=== PATIENT | male | born 1955 | race Hispanic/Latino ===

== ENCOUNTER 2021-10-21 08:37 | Emergency (ER) | payer OTHER ==
[~2021-10-21] VITALS: Ht 175.3 cm; Wt 84.4 kg
[2021-10-21 08:50] VITALS: BP 132/79
[2021-10-21] MEDS ORDERED: ALTEPLASE 2MG VIAL 2 MG/VIAL VIAL IVCATH SCH (09:00)
== END 2021-10-21 10:50 | disposition home or self-care (01) ==
LOC: EDH 08:37
DX: T82.594A Other mechanical complication of infusion catheter, initial encounter (principal); I10 Essential (primary) hypertension; E10.9 Type 1 diabetes mellitus without complications
CPT/HCPCS: 36593; 99285; J2997

== ENCOUNTER 2021-11-18 09:37 | Emergency (ER) | payer OTHER ==
[~2021-11-18] VITALS: Ht 175.3 cm; Wt 79.8 kg
[2021-11-18 09:38] VITALS: BP 129/59
[2021-11-18] MEDS ORDERED: ALTEPLASE 2MG VIAL 2 MG/VIAL VIAL IVCATH SCH (11:00)
== END 2021-11-18 12:15 | disposition home or self-care (01) ==
LOC: EDH 09:37
DX: T82.594A Other mechanical complication of infusion catheter, initial encounter (principal); E11.9 Type 2 diabetes mellitus without complications; E78.00 Pure hypercholesterolemia, unspecified; I10 Essential (primary) hypertension; Z98.890 Other specified postprocedural states
CPT/HCPCS: 36593; 82948; 99285; J2997

== ENCOUNTER 2022-02-05 21:29 | Emergency (ER) | payer OTHER ==
[~2022-02-05] VITALS: Ht 180.3 cm; Wt 90.7 kg
[2022-02-05 21:57] LABS: BASOPHILS % (AUTO) 0.7 % (0.0-5.0); EOSINOPHILS % (AUTO) 3.2 % (0.0-8.0); HEMATOCRIT 34.3 % (42-54); LYMPHOCYTES % (AUTO) 25.3 % (21.0-51.0); MEAN CORPUSCULAR HEMOGLOBIN 29.9 pg (27.0-33.0); MEAN CORPUSCULAR HGB CONC 35.3 g/dL (32.0-36.0); MEAN CORPUSCULAR VOLUME 84.7 fL (79-99); MONOCYTES % (AUTO) 7.9 % (3.0-13.0); NEUTROPHILS % (AUTO) 62.6 % (40.0-77.0); PLATELET COUNT (AUTO) 280 K/uL (130-400); RED BLOOD CELL COUNT(AUTO) 4.05 MIL/uL (4.50-6.20); RED CELL DISTRIBUTION WIDTH 13.2 % (11.0-15.5)
[2022-02-05] MEDS ORDERED: DICYCLOMINE HCL 10 MG/5 ML ML PO ONE (22:00)
[2022-02-05] MEDS ORDERED: LIDOCAINE HCL 2% VISCOUS 15 ML UDCUP PO ONE (22:00)
[2022-02-05] MEDS ORDERED: MAG/ALUM/SIMETH 30 ML UDCUP PO ONE (22:00)
[2022-02-05 22:07] LABS: CREATININE 1.2 mg/dL (0.5-1.5); POTASSIUM 4.6 mmol/L (3.5-5.1)
[2022-02-05 22:14] LABS: TOTAL PROTEIN, SERUM 6.4 g/dL (6.0-8.3)
[2022-02-06 00:34] VITALS: BP 142/78
== END 2022-02-06 00:41 | disposition home or self-care (01) ==
LOC: EEVIPCON 21:29 → EDH 21:29
DX: M94.0 Chondrocostal junction syndrome [Tietze] (principal); E11.9 Type 2 diabetes mellitus without complications
CPT/HCPCS: 36415; 71045; 80053; 82948; 83690; 84484; 85025; 85378; 93005

== ENCOUNTER → 2024-06-17 | Outpatient (CLI) | payer OTHER ==
[2024-06-17] MEDS: REGADENOSON 0.4 MG/5 ML PF SYG IVP SCH (10:50)
--- NOTE | 2024-06-17 13:46 | HMCSR ---
APPROVED REPORT Height: 5 ft 9in Weight: 225 lbs TEST INDICATIONS Shortness of breath The imaging protocol used to acquire images was Rest Tc-99m/stress Tc-99m 1 day Consent: The procedure was explained and understood by the patient. Informerd consent was witnessed Jeanette Adames RN First, low dose rest was performed then high dose stress. RESTING DATA: The resting ekg shows: NSR Rest SPECT myocardial perfusion imaging was performed in supine position minutes following the intra venous injection of 12 mCi of Tc-99 Sestamibi. Time of rest injection: 07:50: Date: 06/17/2024 PHARMACOLOGIC STRESS: Pharmacologic stress test was performed by injecting regadenoson 0.4 mg IV push followed by the intra venous injection of 30 mCi of Tc-99 Sestamibi. Time of stress injection: 09:40: Date: 06/17/2024 Heart Rate at time of stress injection: 84 bpm. The images were gated to evaluate regional wall motion and calculate left ventricular ejection fracti on. STRESS DETAILS Reason for Termination: Infusion complete Stress Symptoms: Fatigue, Dyspnea Max HR Achieved: 92 bpm % of APMHR Achieved: 70 Max Blood Pressure: 154/79 mmHg Stress ECG: NSR Study quality was excellent. Lung uptake was Normal. LEFT VENTRICLE The left ventricular ejection fraction was calculated to be 60%.TID = . LV PERFUSION The rest and stress images show normal perfusion. LV PERFUSION Stress Perfusion Normal Rest Perfusion Normal IMPRESSION Normal pharmacologic nuclear stress test. Conclusion Normal pharmacologic nuclear stress test NO ischemia NO infarct
== END | disposition home or self-care (01) ==
LOC: RAH 07:03
PROVIDERS: ATTEND Internal Medicine Cardiovascular Disease
DX: R06.02 Shortness of breath (principal)
CPT/HCPCS: 78452; 93017; J2785; A9500 ×2